=== PATIENT | male | born 1980 | race Caucasian/White ===

== ENCOUNTER 2017-07-14 10:50 | Emergency (ER) | payer OTHER, SELFPAY ==
[2017-07-14 11:08] VITALS: BP 156/77; PULSE 101; RESP 20; TEMP 37.1; O2SAT 100; BMI 27.7
--- NOTE | 2017-07-14 11:38 | HMH.EDUTC ---
[facility] [place] Disposition Clinical Impression: Cough Disposition: Home, Self-Care Condition on Discharge: Good Instructions: DI for Cough -- Adult Additional Instructions: * No sign of bacterial infection. Likely viral. Virus can take 7-14 days to run their course * Monitor Temp. FU if fever develops * Encourage fluids, water, gatorade, powerade, pedialyte if /toddler/child * sleep elevated * Humidifier/vaporizer * Promethazine DM cough syrup will cause drowsiness. Use it only at night. No driving, operating machinery or caring for small children after taking it. * Tessalon Perles will not cause drowsiness so use during the day as needed for cough. If your cough becomes productive, stop this and start mucinex during the day for your cough and cough suppressant only at night. Be sure to follow up if symptoms are getting worse or changing as we discussed. Be sure to drink lots of water. Insurance may not cover a prescription of mucinex. Might be cheaper to get 400mg tablets and take 2 tablets morning, midday and evening all with lots of water. Follow up with primary care IMMEDIATELY for new or worsening symptoms OR no noticeable improvement over the next 48-72 hours. 911 for difficulty breathing. Prescriptions: Benzonatate [Benzonatate 200mg Cap] 200 mg PO TID PRN #30 cap PRN Reason: Cough Promethazine/Dextromethorphan [Promethazine-Dm Syrup] 5 - 10 ml PO HS PRN #120 ml PRN Reason: Cough Forms: Work/School Release Time of Disposition: 11:51 Medical Decision Making Vital Signs: 07/14/17 11:08 Temperature 98.7 F Temperature Source Temporal Artery Scan Pulse Rate [Brachial] 101 H Respiratory Rate 20 Blood Pressure [Left Arm] 156/77 Blood Pressure Mean [Left Arm] 103 Blood Pressure Source [Left Arm] Automatic Cuff Blood Pressure Position [Left Arm] Sitting 02 Sat by Pulse Oximetry 100 Oxygen Delivery Method Room Air - Vipin Inquiry Pt receiving controlled substance: No [facility] [place] HPI - General Stated complaint: Cough Vomiting Time Seen by Provider: 07/14/17 11:32 Mode of Arrival: Ambulatory Source of Information: Patient Limitations: No Limitations Description of Symptoms (Recalled from Triage Doc. by RN): COUGHING AND VOMITING DUE TO THE COUGH X 4 DAYS HEENT Symptoms (Recalled from RN notes): No Resp Symptoms (Recalled from RN notes): Yes Skin Symptoms (Recalled from RN notes): No MS Symptoms (Recalled from RN notes): No Functional Status (Recalled from RN notes): NA - History of Present Illness Provider Complaint: c/o nonprod cough since day before yesterday. Rhinorrhea started last night after vomiting. Cough the worst at night. Reports coughing so hard at times, he vomits. No improvement w/ kaitlynn seltzer and it typically helps. No fever, aches, chills, SOA, wheezing. No known sick contacts. - Related Data Previous Rx's Medication Instructions Recorded Benzonatate [Benzonatate 200mg Cap] 200 mg PO TID PRN #30 cap 07/14/17 Promethazine/Dextromethorphan 5 - 10 ml PO HS PRN #120 ml 07/14/17 [Promethazine-Dm Syrup] Allergies Allergy/AdvReac Type Severity Reaction Status Date / Time No Known Allergies Allergy Verified 07/14/17 11:10 - Worker's Comp Is this a Worker's Comp case?: No [facility] History I have reviewed the patient's past medical history: Yes (denies PMHx) Other Surgeries: Yes: No Previous Surgery - *Social History Smoking Status: Current every day smoker Tobacco Type: cigarettes Alcohol Intake: never - Psychiatric History Expresses thoughts of harming self/others: None Suicide Plan Description: No Plan ROS Obtained: Yes Systems reviewed as appropriate & no additional complaints - Constitutional Constitutional: Denies body ache, Denies chills, Reports difficulty sleeping, Reports fatigue ( from not sleeping due to cough ), Denies fever(s), Denies poor appetite, Denies weakness - Eyes Eyes: Denies eye discharge - ENT Ears, Nose, Mouth, and Throat: Denies otalgia, Den
--- NOTE | 2017-07-14 11:47 | ED_ITS ---
[facility] [place] Disposition Clinical Impression: Cough Disposition: Home, Self-Care Condition on Discharge: Good Instructions: DI for Cough -- Adult Additional Instructions: * No sign of bacterial infection. Likely viral. Virus can take 7-14 days to run their course * Monitor Temp. FU if fever develops * Encourage fluids, water, gatorade, powerade, pedialyte if /toddler/ child * sleep elevated * Humidifier/vaporizer * Promethazine DM cough syrup will cause drowsiness. Use it only at night. No driving, operating machinery or caring for small children after taking it. * Tessalon Perles will not cause drowsiness so use during the day as needed for cough. If your cough becomes productive, stop this and start mucinex during the day for your cough and cough suppressant only at night. Be sure to follow up if symptoms are getting worse or changing as we discussed. Be sure to drink lots of water. Insurance may not cover a prescription of mucinex. Might be cheaper to get 400mg tablets and take 2 tablets morning, midday and evening all with lots of water. Follow up with primary care IMMEDIATELY for new or worsening symptoms OR no noticeable improvement over the next 48-72 hours. 911 for difficulty breathing.* Prescriptions: Benzonatate [Benzonatate 200mg Cap] 200 mg PO TID PRN #30 cap PRN Reason: Cough Promethazine/Dextromethorphan [Promethazine-Dm Syrup] 5 - 10 ml PO HS PRN #120 ml PRN Reason: Cough Forms: Work/School Release Time of Disposition: 11:51 Medical Decision Making Vital Signs: 07/14/17 11:08 Temperature 98.7 F Temperature Source Temporal Artery Scan Pulse Rate [Brachial] 101 H Respiratory Rate 20 Blood Pressure [Left Arm] 156/77 Blood Pressure Mean [Left Arm] 103 Blood Pressure Source [Left Arm] Automatic Cuff Blood Pressure Position [Left Arm] Sitting 02 Sat by Pulse Oximetry 100 Oxygen Delivery Method Room Air - Vipin Inquiry Pt receiving controlled substance: No [facility] [place] HPI - General Stated complaint: Cough Vomiting Time Seen by Provider: 07/14/17 11:32 Mode of Arrival: Ambulatory Source of Information: Patient Limitations: No Limitations Description of Symptoms (Recalled from Triage Doc. by RN): COUGHING AND VOMITING DUE TO THE COUGH X 4 DAYS HEENT Symptoms (Recalled from RN notes): No Resp Symptoms (Recalled from RN notes): Yes Skin Symptoms (Recalled from RN notes): No MS Symptoms (Recalled from RN notes): No Functional Status (Recalled from RN notes): NA - History of Present Illness Provider Complaint: c/o nonprod cough since day before yesterday. Rhinorrhea started last night after vomiting. Cough the worst at night. Reports coughing so hard at times, he vomits. No improvement w/ kaitlynn seltzer and it typically helps. No fever, aches, chills, SOA, wheezing. No known sick contacts. - Related Data Previous Rx's Medication Instructions Recorded Benzonatate [Benzonatate 200mg Cap] 200 mg PO TID PRN #30 cap 07/14/17 Promethazine/Dextromethorphan 5 - 10 ml PO HS PRN #120 ml 07/14/17 [Promethazine-Dm Syrup] Allergies Allergy/AdvReac Type Severity Reaction Status Date / Time No Known Allergies Allergy Verified 07/14/17 11:10 - Worker's Comp Is this a Worker's Comp case?: No H History I have reviewed the patient's past medical history: Yes (denies PMHx) Other Surgeries: Yes: No Previous Surgery - *Social History Sm
== END 2017-07-14 11:54 | disposition home or self-care (01) ==
PROVIDERS: Emergency Provider Nurse Practitioner Family; Family Provider Internal Medicine Adolescent Medicine; PCP Surgery
DX: R05 Cough (principal); R11.10 Vomiting, unspecified; F17.210 Nicotine dependence, cigarettes, uncomplicated
CPT/HCPCS: 99202

== ENCOUNTER → 2019-05-19 14:16 | Outpatient (CLI) | payer OTHER, SELFPAY ==
[2019-05-19 15:02] LABS: Basophils % 0.5 % (0.1-2.0); Eosinophils # 0.3 K/mm3 (0.0-0.4); Eosinophils % 2.9 % (0.1-12.0); Hematocrit 45.8 % (42.0-52.0); Hemoglobin 15.2 g/dL (14.1-18.0); Lymphocytes # 3.1 K/mm3 (0.7-4.5); Lymphocytes % 33.5 % (10-50); Mean Corpuscular HGB Conc 33.1 g/dL (31.8-35.4); Mean Corpuscular Hemoglobin 29.7 pg (27.0-31.2); Mean Corpuscular Volume 89.7 fl (80-94); Mean Platelet Volume 8.3 fl (7.4-10.4); Monocytes # 0.4 K/mm3 (0.1-1.0); Monocytes % 4.6 % (1.7-9.3); Neutrophils # 5.4 K/mm3 (1.8-7.8); Neutrophils % 58.6 % (37.0-80.0); Platelet Count 241 K/mm3 (142-424); Red Blood Count 5.11 M/mm3 (4.60-6.20); Red Cell Distribution Width 13.2 % (11.5-17.5); White Blood Count 9.1 K/mm3 (4.8-10.8)
[2019-05-19 16:25] LABS: Anion Gap 12.1 mEq/L (5-15); Blood Urea Nitrogen 13 mg/dL (7-18); Calcium 9.1 mg/dL (8.5-10.1); Carbon Dioxide 27 mmol/L (21.0-32.0); Chloride 106 mmol/L (98-107); Estimated Glomerular Filt Rate 83 ml/min (>60); GFR (African American) 100 ML/MIN (>60); Glucose 79 mg/dL (74-106); Potassium 4.1 mmoL/L (3.5-5.1); Sodium 141 mmol/L (136-145)
== END ==
PROVIDERS: Visit Provider Surgery
DX: L05.91 Pilonidal cyst without abscess (principal); Z01.818 Encounter for other preprocedural examination
CPT/HCPCS: 36415; 80048; 85025

== ENCOUNTER → 2021-04-26 08:27 | Outpatient (CLI) | payer OTHER, SELFPAY ==
[2021-04-26 09:07] LABS: Chloride 104 mmol/L (98-107); Potassium 4.3 mmoL/L (3.5-5.1); Sodium 141 mmol/L (136-145)
[2021-04-26 09:09] LABS: Alanine Aminotransferase 29 U/L (12-78); Alkaline Phosphatase 84 U/L (38-126); Aspartate Amino Transferase 29 U/L (17-59); Bilirubin,Total 0.3 mg/dl (0.2-1.3); Blood Urea Nitrogen 11 mg/dl (9-20); Estimated Glomerular Filt Rate 106 ml/min (>60); GFR (African American) 128 ML/MIN (>60)
[2021-04-26 09:10] LABS: Albumin Level 4.5 g/dl (3.5-5.0); Albumin/Globulin Ratio 1.6 (1.1-1.8); Anion Gap 12.3 mEq/L (5-15); Calcium 9.3 mg/dl (8.4-10.2); Carbon Dioxide 29 mmol/L (22.0-30.0); Chol/HDL Ratio 7.1 (1-3.5); Cholesterol 220 mg/dl (140-200); Globulin 2.9 g/dL (1.3-3.2); Glucose 111 mg/dl (74-100); HDL Cholesterol 31 mg/dl (40-60); Total Protein,Serum 7.4 g/dl (6.3-8.2); Triglycerides 186 mg/dl (30-150); VLDL Cholesterol 37 mg/dL (0-40)
[2021-04-26 09:21] LABS: Direct LDL Cholesterol 165.18 mg/dL (100-129)
[2021-04-26 09:41] LABS: Thyroid Stimulating Hormone 0.67 uIU/mL (0.465-4.68)
== END ==
PROVIDERS: Visit Provider Nurse Practitioner Family
DX: Z00.00 Encounter for general adult medical examination without abnormal findings (principal); R00.2 Palpitations; I10 Essential (primary) hypertension
CPT/HCPCS: 36415; 80053; 80061; 84443

== ENCOUNTER → 2021-05-03 08:38 | Outpatient (CLI) | payer OTHER, SELFPAY ==
[2021-05-03 12:37] LABS: Hemoglobin A1C 5.5 % (4.0-6.0)
== END ==
PROVIDERS: Visit Provider Internal Medicine Adolescent Medicine
DX: R73.9 Hyperglycemia, unspecified (principal)
CPT/HCPCS: 36415; 83036

== ENCOUNTER → 2021-06-13 15:38 | Outpatient (CLI) | payer OTHER, SELFPAY | PROVIDERS: PCP Nurse Practitioner Family; Visit Provider Nurse Practitioner Family | DX: G47.33 Obstructive sleep apnea (adult) (pediatric) (principal); R06.83 Snoring | CPT/HCPCS: 95806 ==

== ENCOUNTER → 2021-06-24 06:08 | Outpatient (CLI) | payer OTHER, SELFPAY ==
--- NOTE | 2021-06-24 | CA_ITS ---
APPROVED REPORT Exam: Exercise Treadmill Technologist: Melissa Muñoz Ht: 6 ft 1 in Wt: 230 lbs BSA: 2.28 m2 HR: 99 bpm BP: 147/90 mmHg Indications: Shortness of Breath Medical History Medications: Amlodipine,,,,, Atorvastatin,,,,, LoraTidine,,,,, Stress Test Details Test: Shamir HR Resting HR: 91 bpm Max Heart Rate (APMHR): 178.558490 bpm Max HR Achieved: 160 bpm Target HR (85% APMHR): 151.116038 bpm % of APMHR: 89.89 Recovery HR: 123 bpm BP Resting BP: 147.0/90.0 mmHg Max BP: 230.0/80.0 mmHg Recovery BP: 137.0/72.0 mmHg ECG Resting ECG: Periods of atrial ectopic rhythm, otherwise normal. Clinical Exercise duration: 08:15 min Highest Stage Achieved: Exercise capacity: 10.1 METs Stress ECG Conclusion Patient exercised 8:15 on Shamir Protocol. Test stopped due to shortness of air, leg fatigue. Symptoms: No chest pain. Arrhythmias/Ectopy: Atrial ectopic rhythm in pretest and recovery. Occasional PVC. ST-T Changes: Normal ST response to exercise. Conclusion: Normal GXT. Underlying ectopic atrial rhythm. Myoview images reported separately. Test Summary Stage 3 02:15 14.0 3.4 155 . . . . REST . . . . . . . Standing REST 21:13 0.0 0.0 91 . 147/ 90 . . Stage 1 01:00 10.0 1.7 103 . . . . Stage 1 02:00 10.0 1.7 109 . . . . Stage 1 03:00 10.0 1.7 113 . 198/ 84 . . Stage 2 01:00 12.0 2.5 123 . . . . Stage 2 02:00 12.0 2.5 132 . . . . Stage 2 03:00 12.0 2.5 140 . 230/ 80 . . Stage 3 01:00 14.0 3.4 152 . . . . Stage 3 . . . . . . . Myoview Injected Stage 3 02:00 14.0 3.4 156 . . . . Stage 3 02:15 14.0 3.4 155 . . . Stop exercise at 08:15 RECOVERY 01:00 0.0 0.0 138 . 160/ 70 . . RECOVERY 02:00 0.0 0.0 135 . 160/ 70 . . RECOVERY 03:00 0.0 0.0 131 . 169/ 86 . . RECOVERY 04:00 0.0 0.0 127 . 169/ 86 . . RECOVERY 05:00 0.0 0.0 124 . 145/ 81 . . RECOVERY 06:00 0.0 0.0 126 . 145/ 81 . . RECOVERY 07:00 0.0 0.0 120 . 145/ 81 . . RECOVERY 07:21 0.0 0.0 123 . 137/ 72 . . Electronically signed by : Luis E Holland MD 06/24/2021 18:51:35
--- NOTE | 2021-06-24 06:14 | NM_ITS ---
APPROVED REPORT Exam: Nuclear Stress Test Indication: SOB, HTN, High cholesterol, Tobacco use, Family history Patient Location: Outpatient Stress Tech: Melissa Muñoz CT Tech:Katlyn Kaplan, ARRT, RT (R)(N) Ht: 6 ft 1 in Wt: 230 lbs HR: 91 bpm BP: 147/90 mmHg BSA: 2.28 m2 BMI: 30.3 History: SOB, HTN, High cholesterol, Tobacco use, Family history Procedure: Patient exercised on Shamir protocol 8:15 minutes and sec, resting heart rate 91 bpm, resting blood pressure 147/90 mmHg, with exercise maximum heart rate achived was 160 bpm which is 90 % of the maximum predicted heart rate and blood pressure was 230/80 mmHg. Test was stopped due to SOB. Patient denied any complaint of chest pain. Patient has good exercise capacity, achieved 10.1 METs of workload on treadmill, the blood pressure response to exercise was Hypertensive. Electrocardiogram Resting electrocardiogram showed sinus rhythm atrial ectopic beats, with exercise there is less than 1.[address] segment depression noted from the baseline EKG. The EKG portion of the exercise Myoview is negative for ischemia Cardiac Stress and Resting SPECT Images: Cardiac Stress and Resting SPECT images were obtained using technetium 99m Myoview 32.4 mCi stress and 10.74 mCi at rest. Gated SPECT for analysis of segmental wall motion and calculation of the ejection fraction also done. Cardiac stress and resting SPECT images show uniform myocardial activity without segmental perfusion abnormality, computer derived ejection fraction is 51% with no regional wall motion abnormality, right ventricle is normal size and contractility. Conclusion: 1. The EKG portion of the exercise Myoview is negative for ischemia, patient has good exercise capacity achieved 10.1 METs of workload on treadmill, the blood pressure response to exercise was hypertensive, there was no exercise-induced chest discomfort. 2. No scintigraphic evidence of reversible ischemia seen, computer derived ejection fraction is 51% with no regional wall motion abnormality, right ventricle is normal size and contractility. 3. Normal exercise Myoview study except for hypertensive blood pressure response with exercise. Electronically signed by : Luis E Holland MD 06/24/2021 19:05:53
--- NOTE | 2021-06-24 08:19 | HMH.ITSHM ---
Current Home Medications as stated by this patient Brian Caldwell JR or account services representative. []AMLODIPINE ATORVASTATIN LORATADINE
== END ==
PROVIDERS: PCP Internal Medicine Adolescent Medicine; Visit Provider Nurse Practitioner Family
DX: R06.02 Shortness of breath (principal)
CPT/HCPCS: 78452; 93017; A9502

== ENCOUNTER → 2021-07-04 15:05 | Outpatient (CLI) | payer OTHER, SELFPAY ==
--- NOTE | 2021-07-04 | CA_ITS ---
APPROVED REPORT EXAM: Comprehensive 2D, Doppler, and color-flow Echocardiogram Psychologist Social: Neena Real RT(R) Ht: 6 ft 1 in Wt: 230lbs BSA: 2.28 BP: 147/90 mmHg Indications: smoker, SOB, edema, HTN, hyperlipidemia, family history of HD 2D Dimensions LVOT 1.97 cm (M/F) 1.5-2.5 LVEF (Simmons's) 62.60 % M: 52 - 72 LV Volume 100.60 mL M: 62 - 150 LV Volume Index 44.12 mL/m2 M: 34 - 74 LA Volume 29.60 mL LA Volume Index 12.98 mL/m2 (M/F) 16-34 M-Mode Dimensions RVDd 2.58 cm (0.9-2.6) LA Diam 3.55 cm (1.9-4.0) LVDd 4.70 cm (3.5-5.7) Ao Diam 2.95 cm (2.0-3.7) LVDs 3.64 cm (3.5-5.7) IVSd 0.72 cm (0.6-1.1) PWd 1.06 cm (0.6-1.1) EF (Teich) 45.40% FS 22.60% EDV (Teich) 102.40 mL ESV (Teich) 55.90 mL LV Diastology E Decel Time 147.00 (160-240 msec) E/A Ratio 0.7 MED E' 13.90 (< 7 cm/sec) E'/MED E' Ratio 4.63 (>14) LAT E' 14.10 (<10 cm/sec) E/LAT E' Ratio 4.56 (>14) Mitral Valve MV E Max Carlin. 64.00 (40-130 cm/s) MV A Velocity 88.00 (40-130 cm/s) E/A Ratio 0.73 MV Decel. Time 147.00 (160-240 ms) MV PHT 43.00 ms Left Ventricle Left atrium is mildly enlarged, left ventricle is normal size, mild concentric left ventricular hypertrophy, visually estimated ejection fraction 55% with no regional wall motion abnormality, grade 1 diastolic dysfunction seen without tissue Doppler evidence of reduced left atrial pressure. Right Ventricle Right atrium and right ventricle are normal size and contractility. Aortic Valve Aortic valve is grossly normal, there is no aortic stenosis or aortic insufficiency. Mitral Valve Mitral valve is grossly normal, there is trace mitral regurgitation. Tricuspid Valve Tricuspid valve grossly normal, there is trace tricuspid regurgitation, tricuspid regurgitation jet velocity is inadequate for calculation of the right ventricular systolic pressure. Pulmonic Valve Pulmonic valve is poorly visualized. Great Vessels Aortic root is normal size. Inferior vena cava is normal size with normal inspiratory collapse. Pericardium No significant pericardial effusion noted. Conclusion 1. Normal left ventricular size, mild concentric left ventricular hypertrophy, visually estimated ejection fraction 55% with no regional wall motion abnormality, grade 1 diastolic dysfunction seen without Doppler evidence of raised left atrial pressure. 2. Trace mitral and tricuspid regurgitation. 3. No significant pericardial effusion noted. 4. Inferior vena cava is normal size with normal inspiratory collapse. Electronically signed by : Luis E Holland MD 07/07/2021 13:21:35
== END ==
PROVIDERS: PCP Nurse Practitioner Family; Visit Provider Nurse Practitioner Family
DX: R06.09 Other forms of dyspnea (principal)
CPT/HCPCS: 93306

== ENCOUNTER 2021-07-22 19:05 | Emergency (ER) | payer OTHER, SELFPAY ==
[2021-07-22 19:10] VITALS: BP 146/92; PULSE 109; RESP 18; TEMP 37.4; O2SAT 98; BMI 30.3
--- NOTE | 2021-07-22 19:59 | HMH.EDUTC ---
[facility] [place] Clinical Impression: Close exposure to COVID-19 virus, Viral syndrome Disposition: Home, Self-Care Condition on Discharge: Good Instructions: DI for Viral Syndrome, DI for COVID-19 (Suspected or Confirmed ), Preventing the Spread of Coronavirus Discharge Instructions Additional Instructions: Drink plenty of fluids. Take tylenol or ibuprofen for pain or fever. Take the medications as directed. The zofran is for in case you start to have nausea. Follow up with your regular doctor. GO TO THE ER FOR ANY WORSENING SYMPTOMS Quarantine until you know the results of your covid-19 test. Notify your school or workplace of your results and follow their instructions regarding return to work/school. Prescriptions: Ondansetron [Zofran 4mg ODT] 4 mg PO Q8HP PRN #20 tab PRN Reason: Nausea Transmission Status: Received by [facility] Referrals: Мария Allen APRN [Primary Care Provider] - Forms: Work/School Release Time of Disposition: 20:18 Medical Decision Making - Medical Records Medical records reviewed: No: I reviewed the patient's medical records. - Vipin Inquiry Pt receiving controlled substance: No Vital Signs: 07/22/21 19:10 07/22/21 20:21 Temperature 99.3 F 99.3 F Temperature Source Oral Pulse Rate 109 H Pulse Rate [Right Brachial] 109 H Respiratory Rate 18 18 Blood Pressure 146/92 H Blood Pressure [Right Arm] 146/92 H Blood Pressure Mean [Right Arm] 110 Blood Pressure Source [Right Arm] Automatic Cuff Blood Pressure Position [Right Arm] Sitting 02 Sat by Pulse Oximetry 98 Oxygen Delivery Method Room Air Orders (Tests/Meds): ORDERS Category Date Time Status Covid-19 Nasal PCR ([facility]) Routine Lab 07/22/21 19:20 [place] [facility] [place] - General Stated complaint: covid test Time Seen by Provider: 07/22/21 20:00 Mode of Arrival: Ambulatory Source of Information: Patient Limitations: No Limitations Description of Symptoms (Recalled from Triage Doc. by RN): PATIENT C/O LOW-GRADE FEVER. TESTED POSITIVE FOR COVID LAST WEEK HEENT Symptoms (Recalled from RN notes): No Resp Symptoms (Recalled from RN notes): No Skin Symptoms (Recalled from RN notes): No MS Symptoms (Recalled from RN notes): No Functional Status (Recalled from RN notes): WNL - History of Present Illness Provider Complaint: He states that he has been running a low grade fever since this morning. His has covid-19 and he has been around her. He has not been vaccinated. - Related Data Previous Rx's Medication Instructions Recorded Ondansetron [Zofran 4mg ODT] 4 mg PO Q8HP PRN #20 tab 07/22/21 Allergies Allergy/AdvReac Type Severity Reaction Status Date / Time No Known Allergies Allergy Verified 08/14/19 11:05 - Worker's Comp Is this a Worker's Comp case?: No [facility] History - Hepatitis A Screen Drug use history?: No High risk sexual behaviors?: No History of sexually transmitted infection?: No Currently employed?: No Childcare worker?: No Do you have indoor plumbing?: Yes Do you have electricity?: Yes Attestation statement:: This patient has been screened for Hepatitis A risk factors. I have reviewed the patient's past medical history: Yes Medical History: Denies:: Cancer, Diabetes Mellitus Type 1, Diabetes Mellitus Type 2, Hypertension, MRSA, Seizures Other Medical History: Denies: Blood Transfusion Reaction Other Surgeries: Yes: No Previous Surgery, Other Amputation: No Fractures: No Comment: pilonidal cyst - Social History Smoking Status: Current every day smoker Tobacco Type: cigarettes # Packs/Day (cigarettes): 1 Alcohol Intake: never Substance Use Type: denies use Occupational Status: employed Housing: house Household Members: spouse Family Hx:: Hypertension, Hyperlipidemia, Diabetes ROS Obtained: Yes All systems reviewed & no additional complaints - Constitutional Constitutional: Reports as per HPI - Eyes E
[2021-07-22 20:21] VITALS: BP 146/92; PULSE 109; RESP 18; TEMP 37.4; O2SAT 98
== END 2021-07-22 20:27 | disposition home or self-care (01) ==
PROVIDERS: Emergency Provider Nurse Practitioner Family; PCP Nurse Practitioner Family
DX: U07.1 COVID-19 (principal); F17.210 Nicotine dependence, cigarettes, uncomplicated
CPT/HCPCS: 99202; C9803; G0463; U0003; U0005

== ENCOUNTER → 2022-02-07 09:31 | Outpatient (CLI) | payer OTHER, SELFPAY ==
[2022-02-07 11:38] LABS: Alanine Aminotransferase 34 U/L (12-78); Albumin Level 4.4 g/dl (3.5-5.0); Albumin/Globulin Ratio 1.8 (1.1-1.8); Alkaline Phosphatase 100 U/L (38-126); Anion Gap 11.4 mEq/L (5-15); Aspartate Amino Transferase 29 U/L (17-59); Blood Urea Nitrogen 11 mg/dl (9-20); Calcium 9.3 mg/dl (8.4-10.2); Carbon Dioxide 27 mmol/L (22.0-30.0); Chloride 106 mmol/L (98-107); Cholesterol 134 mg/dl (140-200); Estimated Glomerular Filt Rate 106 ml/min (>60); GFR (African American) 128 ML/MIN (>60); Globulin 2.5 g/dL (1.3-3.2); Glucose 106 mg/dl (74-100); HDL Cholesterol 27 mg/dl (40-60); Potassium 4.4 mmoL/L (3.5-5.1); Sodium 140 mmol/L (136-145); Total Protein,Serum 6.9 g/dl (6.3-8.2); Triglycerides 109 mg/dl (30-150); VLDL Cholesterol 22 mg/dL (0-40)
[2022-02-07 11:53] LABS: Bilirubin,Total 0.1 mg/dl (0.2-1.3)
[2022-02-07 11:54] LABS: Hemoglobin A1C 5.6 % (4.0-6.0)
[2022-02-09 15:33] LABS: Direct LDL Cholesterol 81 mg/dL (100-129)
== END ==
PROVIDERS: PCP Nurse Practitioner Family; Visit Provider Nurse Practitioner Family
DX: Z00.00 Encounter for general adult medical examination without abnormal findings (principal); I10 Essential (primary) hypertension; E78.2 Mixed hyperlipidemia; R73.9 Hyperglycemia, unspecified
CPT/HCPCS: 36415; 80053; 80061; 83036

== ENCOUNTER 2024-04-29 08:46 | Outpatient (CLI) | payer BC, SELFPAY ==
[2024-04-29 09:27] LABS: Albumin Level 4.5 g/dl (3.5-5.0); Chloride 109 mmol/L (98-107); Potassium 4.3 mmoL/L (3.5-5.1); Sodium 141 mmol/L (136-145)
[2024-04-29 09:29] LABS: Blood Urea Nitrogen 21 mg/dl (9-20); Estimated Glomerular Filt Rate 81 ml/min (>60); GFR (African American) 98 ML/MIN (>60); Hemoglobin A1C 5.5 % (4.0-6.0)
[2024-04-29 09:30] LABS: Alanine Aminotransferase 24 U/L (12-78); Albumin/Globulin Ratio 1.7 (1.1-1.8); Alkaline Phosphatase 71 U/L (38-126); Anion Gap 11.3 mEq/L (5-15); Aspartate Amino Transferase 26 U/L (17-59); Bilirubin,Total 0.5 mg/dl (0.2-1.3); Calcium 8.7 mg/dl (8.4-10.2); Carbon Dioxide 25 mmol/L (22.0-30.0); Chol/HDL Ratio 5.9 (1-3.5); Cholesterol 136 mg/dl (140-200); Globulin 2.6 g/dL (1.3-3.2); Glucose 112 mg/dl (74-100); HDL Cholesterol 23 mg/dl (40-60); Total Protein,Serum 7.1 g/dl (6.3-8.2); Triglycerides 262 mg/dl (30-150); VLDL Cholesterol 52 mg/dL (0-40)
[2024-04-29 09:41] LABS: Direct LDL Cholesterol 80.28 mg/dL (100-129)
== END 2024-04-29 23:59 | disposition home or self-care (01) ==
LOC: LAB 08:49
PROVIDERS: PCP Nurse Practitioner Family; Visit Provider Nurse Practitioner Family
DX: E78.2 Mixed hyperlipidemia (principal); R73.9 Hyperglycemia, unspecified; Z00.00 Encounter for general adult medical examination without abnormal findings
CPT/HCPCS: 36415; 80053; 80061; 83036

== ENCOUNTER 2024-07-15 08:03 | Outpatient (CLI) | payer BC, SELFPAY ==
[2024-07-15 09:54] LABS: Chloride 107 mmol/L (98-107)
[2024-07-15 09:55] LABS: Albumin Level 4.4 g/dl (3.5-5.0); Potassium 4.4 mmoL/L (3.5-5.1); Sodium 136 mmol/L (136-145)
[2024-07-15 09:57] LABS: Anion Gap 10.4 mEq/L (5-15); Blood Urea Nitrogen 16 mg/dl (9-20); Carbon Dioxide 23 mmol/L (22.0-30.0); Estimated Glomerular Filt Rate 91 ml/min (>60); GFR (African American) 110 ML/MIN (>60)
[2024-07-15 09:58] LABS: Alanine Aminotransferase 43 U/L (12-78); Alkaline Phosphatase 73 U/L (38-126); Aspartate Amino Transferase 33 U/L (17-59); Bilirubin,Total 0.4 mg/dl (0.2-1.3); Calcium 9.2 mg/dl (8.4-10.2); Cholesterol 119 mg/dl (140-200); Globulin 2.2 g/dL (1.3-3.2); Glucose 102 mg/dl (74-100); HDL Cholesterol 24 mg/dl (40-60); Total Protein,Serum 6.6 g/dl (6.3-8.2); Triglycerides 130 mg/dl (30-150); VLDL Cholesterol 26 mg/dL (0-40)
[2024-07-15 10:08] LABS: Hemoglobin A1C 5.5 % (4.0-6.0)
[2024-07-15 10:09] LABS: Direct LDL Cholesterol 72.46 mg/dL (100-129)
== END 2024-07-15 23:59 | disposition home or self-care (01) ==
LOC: LAB 08:04
PROVIDERS: PCP Nurse Practitioner Family; Visit Provider Nurse Practitioner Family
DX: R73.9 Hyperglycemia, unspecified (principal); E78.2 Mixed hyperlipidemia
CPT/HCPCS: 36415; 80053; 80061; 83036

== ENCOUNTER 2025-03-22 09:36 | Outpatient (CLI) | payer BC, SELFPAY ==
--- NOTE | 2025-03-22 09:40 | XR_ITS ---
FINAL REPORT CLINICAL HISTORY: LT FOOT PAIN, SWELLING FINDINGS: AP, oblique and lateral views of the left foot were obtained. There is no prior exam for comparison. There is no acute fracture or dislocation. The joint spaces are preserved. Soft tissues are unremarkable. IMPRESSION: No acute osseous abnormality of the left foot. Consider MRI if pain persists. Reviewed, Interpreted and Dictated by Naomy Bhakta MD Transcribed by Maia Dwyer Authenticated and [facility]
[2025-03-22 09:55] LABS: Hematocrit 43.0 % (42.0-52.0); Hemoglobin 15.1 g/dL (14.1-18.0); Immature Granulocytes % 0.2 %; Mean Corpuscular HGB Conc 35.1 g/dL (31.8-35.4); Mean Corpuscular Hemoglobin 30.1 pg (27.0-31.2); Mean Corpuscular Volume 85.8 fl (80-94); Nucleated Red Blood Cells % 0 %; Platelet Count 225 K/mm3 (142-424); Red Blood Count 5.01 M/mm3 (4.60-6.20); Red Cell Distribution Width-SD 38.8 fL; White Blood Count 9.6 K/mm3 (4.8-10.8)
[2025-03-22 10:03] LABS: Albumin Level 4.4 g/dl (3.5-5.0); Chloride 107 mmol/L (98-107); Potassium 4.0 mmoL/L (3.5-5.1); Sodium 141 mmol/L (136-145)
[2025-03-22 10:05] LABS: Blood Urea Nitrogen 10 mg/dl (9-20); Creatinine,Serum 0.90 mg/dl (0.66-1.25); Estimated Glomerular Filt Rate 91 ml/min (>60); GFR (African American) 110 ML/MIN (>60)
[2025-03-22 10:06] LABS: Alanine Aminotransferase 43 U/L (12-78); Albumin/Globulin Ratio 1.4 (1.1-1.8); Alkaline Phosphatase 60 U/L (38-126); Anion Gap 14.0 mEq/L (5-15); Aspartate Amino Transferase 35 U/L (17-59); Bilirubin,Total 0.6 mg/dl (0.2-1.3); Calcium 9.3 mg/dl (8.4-10.2); Carbon Dioxide 24 mmol/L (22.0-30.0); Globulin 3.1 g/dL (1.3-3.2); Glucose 117 mg/dl (74-100); Total Protein,Serum 7.5 g/dl (6.3-8.2); Uric Acid 4.1 mg/dl (3.5-8.5)
[2025-03-22 10:56] LABS: C-Reactive Protein 5.2 mg/L (0-4)
== END 2025-03-22 23:59 | disposition home or self-care (01) ==
LOC: RAD 09:37
PROVIDERS: PCP Nurse Practitioner Family; Visit Provider Nurse Practitioner Family
DX: M79.672 Pain in left foot (principal); M79.89 Other specified soft tissue disorders
CPT/HCPCS: 36415; 73630; 80053; 84550; 85025; 85651; 86140

== ENCOUNTER 2025-04-28 08:12 | Outpatient (CLI) | payer BC, SELFPAY ==
[2025-04-28 09:26] LABS: Alanine Aminotransferase 37 U/L (12-78); Albumin Level 4.0 g/dl (3.5-5.0); Albumin/Globulin Ratio 1.1 (1.1-1.8); Alkaline Phosphatase 79 U/L (38-126); Anion Gap 15.3 mEq/L (5-15); Aspartate Amino Transferase 31 U/L (17-59); Bilirubin,Total 0.8 mg/dl (0.2-1.3); Blood Urea Nitrogen 14 mg/dl (9-20); Calcium 9.5 mg/dl (8.4-10.2); Carbon Dioxide 24 mmol/L (22.0-30.0); Chloride 105 mmol/L (98-107); Cholesterol 124 mg/dl (140-200); Creatinine,Serum 0.90 mg/dl (0.66-1.25); Estimated Glomerular Filt Rate 91 ml/min (>60); GFR (African American) 110 ML/MIN (>60); Globulin 3.5 g/dL (1.3-3.2); Glucose 115 mg/dl (74-100); HDL Cholesterol 31 mg/dl (40-60); Potassium 4.3 mmoL/L (3.5-5.1); Sodium 140 mmol/L (136-145); Total Protein,Serum 7.5 g/dl (6.3-8.2); Triglycerides 118 mg/dl (30-150); Uric Acid 4.4 mg/dl (3.5-8.5)
[2025-04-28 12:42] LABS: Hemoglobin A1C 5.7 % (4.0-6.0)
== END 2025-04-28 23:59 | disposition home or self-care (01) ==
LOC: LAB 08:16
PROVIDERS: PCP Nurse Practitioner Family; Visit Provider Nurse Practitioner Family
DX: Z00.00 Encounter for general adult medical examination without abnormal findings (principal); E78.5 Hyperlipidemia, unspecified; M10.9 Gout, unspecified; R73.9 Hyperglycemia, unspecified
CPT/HCPCS: 36415; 80053; 80061; 83036; 84550